=== PATIENT | male | born 1975 | race Caucasian/White ===

== ENCOUNTER 2020-08-27 16:15 | Emergency (ER) | payer MEDICAID ==
[~2020-08-27] VITALS: Ht 195.6 cm; Wt 115.9 kg
[2020-08-27] MEDS ORDERED: CEPH250T PO (16:42)
[2020-08-27] MEDS ORDERED: SULF1TAB49 PO (16:42)
[2020-08-27 16:56] VITALS: BP 129/76
== END 2020-08-27 17:03 | disposition home or self-care (01) ==
LOC: ER 16:16
DX: L03.116 Cellulitis of left lower limb (principal); J45.909 Unspecified asthma, uncomplicated; F17.200 Nicotine dependence, unspecified, uncomplicated; Z79.2 Long term (current) use of antibiotics; Z79.899 Other long term (current) drug therapy
CPT/HCPCS: 99283